=== PATIENT | male | born 1965 | race Caucasian/White ===

== ENCOUNTER 2020-03-16 17:45 | Inpatient (IN) | payer OTHER ==
[~2020-03-16] VITALS: Ht 182.9 cm; Wt 95.3 kg
--- NOTE | 2020-03-16 18:09 | NUR ---
PTE REFIER FIEBRE DOLOR EN CUERPO DESDE HACE VARIOS [place] SE SAUL S/V YS EUBIAC EN AREEA DE COVID
--- NOTE | 2020-03-16 18:22 | NUR ---
PT ALERTA Y ORIENTADO X3 ESFERAS SE LE ORIENTA SOBRE TX Y REFIERE ENTEDER. SE SAUL MUESTRAS DE GINNA Y VENOPUNCION CON TECNICAS ASEPTICAS. PT TOL[place]. SE MANTIENE BAJO OBSERVACION POR CAMBIOS EN MAGALI.
== END 2020-03-19 16:53 | disposition home or self-care (01) | DRG 177 ==
LOC: ER 17:45 → MEDJ 20:55
PROVIDERS: ADMIT Specialist; ATTEND Specialist
PROC: 4A12X4Z Monitoring of Cardiac Electrical Activity, External Approach (ICD-10-PCS; 2020-03-17)
PROC: CB2YYZZ Tomographic (Tomo) Nuclear Medicine Imaging of Respiratory System using Other Radionuclide (ICD-10-PCS; principal; 2020-03-18)
PROC: B24BZZZ Ultrasonography of Heart with Aorta (ICD-10-PCS; 2020-03-18)
DX: U07.1 COVID-19 (principal); J12.89 Other viral pneumonia; N17.8 Other acute kidney failure; D64.9 Anemia, unspecified; K76.0 Fatty (change of) liver, not elsewhere classified